=== PATIENT | male | born 1955 | race Caucasian/White ===

== ENCOUNTER 2018-12-16 11:07 | Inpatient (IN) | payer OTHER ==
[~2018-12-16] VITALS: Ht 177.8 cm; Wt 75.6 kg
[~2018-12-16 11:07] MED LIST: Aspirin EC81 MG PO; B-COMPLEX PLUS1 EACH PO; CHOL10002 PO; GLIP10ER PO; IBUP600 PO; METF500C PO; Norco 5-325 Ta1 EACH PO; Zestril30 MG PO
[2018-12-16 11:41] LABS: BASOPHILS ABSOLUTE AUTO 0.06 K/mm3 (0.00-0.23); BASOPHILS PERCENT AUTO 1 % (0-2); EOSINOPHILS ABSOLUTE AUTO 0.06 K/mm3 (0.00-0.68); EOSINOPHILS PERCENT AUTO 1 % (0-6); Hematocrit 41.9 % (37.0-53.0); Hemoglobin 13.4 g/dL (13.5-17.5); IMMATURE GRAN ABSOLUTE AUTO 0.05 K/mm3 (0.00-0.10); IMMATURE GRAN PERCENT AUTO 1 % (0-1); LYMPHOCYTES ABSOLUTE AUTO 1.57 K/mm3 (0.84-5.20); LYMPHOCYTES PERCENT AUTO 18 % (21-46); MONOCYTES ABSOLUTE AUTO 0.71 K/mm3 (0.16-1.47); MONOCYTES PERCENT AUTO 8 % (4-13); Mean Corpuscular HGB 30.9 pg (26.0-34.0); Mean Corpuscular Volume 97 fL (80-100); Mean Platelet Volume 11.1 fL (9.1-12.4); NEUTROPHILS ABSOLUTE AUTO 6.15 K/mm3 (1.96-9.15); NEUTROPHILS PERCENT AUTO 71 % (41-73); Platelet Count 247 K/mm3 (150-400); Red Blood Cell Count 4.33 M/mm3 (4.30-5.90)
[2018-12-16] MEDS ORDERED: METO50ER PO (12:03)
[2018-12-16 12:07] LABS: Alanine Aminotransfer (ALT/SGP 31 U/L (12-78); Albumin, Blood 3.8 g/dL (3.4-5.0); Albumin/Globulin Ratio 1.1 (0.8-1.8); Alk Phos 128 U/L (50-136); Anion Gap 6 mmol/L (6-16); Aspartate Aminotrans (AST/SGOT 14 U/L (12-37); Bilirubin, Total 0.3 mg/dL (0.1-1.0); Blood Urea Nitrogen 35 mg/dL (8-24); Bun/Creatinine Ratio 26.3 (12.0-20.0); CO2, Blood 28 mmol/L (21-32); Calcium, Blood 9.5 mg/dL (8.5-10.1); Chloride, Blood 101 mmol/L (98-108); Creatinine, Blood 1.33 mg/dL (0.60-1.20); Globulin, Blood 3.6 g/dL (2.2-4.0); Glomerular Filtration Rate 57 (60-); Glucose, Blood 338 mg/dL (70-99); Potassium, Blood 4.1 mmol/L (3.5-5.5); Sodium, Blood 135 mmol/L (136-145); Total Protein, Blood 7.4 g/dL (6.4-8.2)
[2018-12-16 12:12] LABS: Troponin I <0.015 ng/mL (0.000-0.040)
[2018-12-16 12:19] LABS: Source, Urine Clean Catch
[2018-12-16 12:30] LABS: Bilirubin, Urine Neg (Neg); Blood, Urine Neg (Neg); Glucose Qualitative, Urine 4+ (Neg); Ketones, Urine Neg (Neg); Leukocyte Esterase, Urine Neg (Neg); Nitrite, Urine Neg (Neg); Protein, Urine 3+ (Neg); Specific Gravity, Urine 1.005 (1.003-1.022); Urobilinogen, Urine NORM (Normal)
[2018-12-16 12:46] LABS: Appearance, Urine Clear (Clear); Color, Urine Yellow (P-Yellow)
[2018-12-16 12:55] LABS: U Amphetamine Screen Not Detected; U Barbituate Screen Not Detected; U Benzodiazapine Screen Not Detected; U Buprenorphine Screen Not Detected; U Cannabinoids Screen DETECTED; U Cocaine Screen Not Detected; U Methadone Screen Not Detected; U Methamphetamine Screen Not Detected; U Opiates Screen Not Detected; U Oxycodone Screen Not Detected; U Phencyclidine Screen Not Detected; U Propoxyphene Screen Not Detected
[2018-12-16 12:58] LABS: Bacteria Not Seen /hpf; Red Blood Cells, Urine Not Seen /hpf (0-2); Squamous Epithelial Cells Few /hpf (Few); White Blood Cells, Urine Not Seen /hpf (0-5)
[2018-12-16] MEDS ORDERED: CHLO25B PO (13:55)
[2018-12-16] MEDS ORDERED: Fish Oil 10001000 MG PO (14:11)
[2018-12-16] MEDS ORDERED: VITAMIN E PO (14:11)
[2018-12-16 17:33] LABS: CHOL/HDL RATIO 5.4; Cholesterol 279 mg/dL (50-200); HDL Cholesterol 52 mg/dL (>39); LDL/HDL RATIO 3.5; Low Density Lipoprotein Chol 180 mg/dL (0-110); Triglycerides 233 mg/dL (30-160); Very Low Density Lipoprot Chol 46 mg/dL (6-32)
--- NOTE | 2018-12-16 19:17 | NUR ---
SHIFT SUMMARY PT ADMITTED FOR CVA. 63 YR OLD MALE. FULL CODE. LEFT SIDED DEFICITS MAY BE FROM PREVIOUS STROKE. PT SLURRING HIS WORDS THIS MORNING. CT SCAN SHOWED NOTHING REMARKABLE. MRI TO BE PERFORMED TOMORROW. HE IS ON TELEMETRY. ROOM AIR. A&O X4. ADA DIET. HX HTN, DM2, 11 YR OLD CVA. SCD'S FOR DVT PREVENTION. PT IS INDEPENDENT AND CONTINENT. NO KNOWN ALLERGIES.
--- NOTE | 2018-12-17 03:17 | NUR ---
SHIFT SUMMARY PT ADMITTED FOR OBSERVATION FOR POSSIBLE CVA. FULL CODE. ADA DIET WITH CBG AT AC AND HS. NEURO CHECKS Q 4 HRS. 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 PT TO HAVE MR AND ECHO COMPLETED TODAY. LOVENOX. INDEPENDENT IN ROOM. NO EVIDENCE OF ACUTE CVA ON CT SCAN. L SIDED WEAKNESS. 18 G IV TO R AC. TAKES MEDICATIONS WHOLE. INSULIN WAS HELD THIS NIGHT DUE TO A CBG OF 151 ON HIGH SS AND TO ADMINISTER AT 150 AND PT DOES NOT TAKE INSULIN AT BASELINE. THE PT PRESENTED TO TO [facility] WITH C/O SLURRED SPEECH, SOME DISORIENTATION, AND SLOWER RESPONSES THEN USUAL PER REPORT FROM PTS . THE PT HAS A HX OF CVA FROM ABOUT 11-12 YEARS AGO WITH SUBSEQUENT L SIDED WEAKNESS. THE PT REPORTED DIFFICULTY SWALLOWING OVER THE 3-4 DAYS AND HAD STARTED COUGHING AFTER A SIP OF WATER PER REPORT. NO SWALLOWING DIFFICULTIES NOTED NO FAR THIS SHIFT. THE PT REPORTED TO THIS NURSE THAT THE DIFFICULTY SWALLING IS TYPICALLY SECONDARY TO CONSUMING SOMETHING DRY SUCH CRACKERS. THE PTS TOXICOLOGY SCREEN WAS POSITIVE FOR MARIJUANA, WHICH COULD BE CONTRIBUTING TO THE PTS SIGHNS AND SYMPTOMS PER REPORT. THE PTS CALL THIS NIGHT TO STATED THAT IF HER HAS ANY CHANGE IN CONDITION THAT SHE WOULD LIKE A PHONE CALL RIGHT AWAY, HER NUMBER IS ON THE BOARD IN THE PTS ROOM. THE PT DID NOT APPEAR TO SHOW ANY CHANGES SO FAR THIS SHIFT, THIS NURSE DID NOTICE A SMALL AMOUNT OF WORD FINDING DIFFICULTY AND SLURRED SPEECH X1 DURING CARE. THE PT HAS APPEARED TO SLEEP COMFORTABLY MOST OF THE NIGHT WITH NO APPARENT SIGNS OF ACUTE DISTRESS. ABLE TO MAKE NEEDS KNOWN AND CALL LIGHT IN REACH.
[2018-12-17 05:52] LABS: Anion Gap 7 mmol/L (6-16); Blood Urea Nitrogen 30 mg/dL (8-24); Bun/Creatinine Ratio 24.6 (12.0-20.0); CO2, Blood 26 mmol/L (21-32); Chloride, Blood 104 mmol/L (98-108); Creatinine, Blood 1.22 mg/dL (0.60-1.20); Glomerular Filtration Rate >60 (60-); Glucose, Blood 180 mg/dL (70-99); Potassium, Blood 3.9 mmol/L (3.5-5.5); Sodium, Blood 137 mmol/L (136-145)
--- NOTE | 2018-12-17 11:06 | NUR ---
Echocardiogram completed.
--- NOTE | 2018-12-17 18:29 | NUR ---
SHIFT SUMMARY 63 YR OLD MALE ADMITTED FOR CVA. FULL CODE. HAD MRI TODAY. ACHS - MED SS. SOFT BITE SIZE DIET, SCDS FOR DVT PREVENTION, DYSPHAGIA PRECAUTIONS - NO STRAWS. PT ON TELE. A&O X4, INDEPENDENT IN ROOM, CONTINENT. HX: CVA 12 YRS AGO (LFT SIDED DEFICITS), HTN, DM 2, PT ALSO ON LOVENOX FOR DVT PREVENTION. NEURO CHECKS Q 4 HRS.
--- NOTE | 2018-12-18 03:43 | NUR ---
SHIFT SUMMARY NO APPARENT ACUTE CHANGES SO FAR THIS SHIFT FROM PREVIOUS SHIFT. PT HAS APPEARED TO SLEEP COMFORTABLY THROUGHOUT THE NIGHT. ABLE TO MAKE NEEDS KNOWN AND CALL LIGHT IN REACH.
[2018-12-18] MEDS ORDERED: ATOR40TA PO (12:17)
[2018-12-18] MEDS ORDERED: CLOP75 PO (12:17)
[2018-12-18] MEDS ORDERED: Natural Vita400 UNIT PO (12:17)
[2018-12-18] MEDS ORDERED: INSULANPEN SC (12:18)
[2018-12-18] MEDS ORDERED: MELATONIN5 M1 PO (12:19)
--- NOTE | 2018-12-18 14:13 | NUR ---
DISCHARGED TO HOME WITH HIS AT 1345. ST, OT, AND FIRE SAFETY DIRECTOR HAVE ALL INSTRUCTED HIM/THEM TODAY. I HAVE DONE SOME INSTRUCTION ON INSULIN PEN INJECTION AND KEEPING A RECORD OF ALL HIS CBG RESULTS (ATLEAST TWICE A DAY). HE KNOWS TO TAKE THE RECORD INTO HIS PCP. HE HAS RX'S FOR A GLUCOMETER AND SUPPLIES, AND FOR OUTPT ST AND OT. RX'S ARE AT [facility] IN [place].
== END 2018-12-18 13:46 | disposition home or self-care (01) | DRG 65 ==
LOC: ER 11:07 → MEDS 11:08 → ENPENDDIS 12-18 10:19 → MEDS 12-18 13:46
PROVIDERS: Emergency Medicine; ADMIT Family Medicine
DX: I63.9 Cerebral infarction, unspecified (principal); E87.1 Hypo-osmolality and hyponatremia; I69.354 Hemiplegia and hemiparesis following cerebral infarction affecting left non-dominant side; I16.1 Hypertensive emergency; N17.9 Acute kidney failure, unspecified; R47.81 Slurred speech; E11.65 Type 2 diabetes mellitus with hyperglycemia; E78.5 Hyperlipidemia, unspecified; I12.9 Hypertensive chronic kidney disease with stage 1 through stage 4 chronic kidney disease, or unspecified chronic kidney disease; E11.22 Type 2 diabetes mellitus with diabetic chronic kidney disease; N18.3 Chronic kidney disease, stage 3 (moderate); R13.10 Dysphagia, unspecified; Z87.891 Personal history of nicotine dependence
CPT/HCPCS: 36415; 70496; 70551; 80048; 80053; 80061; 81001; 82947; 83036; 84484; 85025; 92526; 92610; 93005; 93010; 93306; 93880; 96372; 97162; 97165; 97530; 97535; 99285-25; G0378; J1650; J1815; Q9967

== ENCOUNTER 2018-12-18 15:39 | Emergency (ER) | payer OTHER ==
[~2018-12-18] VITALS: Ht 177.8 cm; Wt 79.4 kg
[~2018-12-18 15:39] MED LIST changes: +ATOR40TA PO; +CHLO25B PO; +CLOP75 PO; +Fish Oil 10001000 MG PO; +INSULANPEN SC; +MELATONIN5 M1 PO; +METO50ER PO; +Natural Vita400 UNIT PO; +VITAMIN E PO
[2018-12-18 16:20] LABS: BASOPHILS ABSOLUTE AUTO 0.05 K/mm3 (0.00-0.23); BASOPHILS PERCENT AUTO 1 % (0-2); EOSINOPHILS ABSOLUTE AUTO 0.09 K/mm3 (0.00-0.68); EOSINOPHILS PERCENT AUTO 1 % (0-6); Hematocrit 40.5 % (37.0-53.0); Hemoglobin 13.4 g/dL (13.5-17.5); IMMATURE GRAN ABSOLUTE AUTO 0.05 K/mm3 (0.00-0.10); IMMATURE GRAN PERCENT AUTO 1 % (0-1); LYMPHOCYTES ABSOLUTE AUTO 2.68 K/mm3 (0.84-5.20); LYMPHOCYTES PERCENT AUTO 26 % (21-46); MONOCYTES ABSOLUTE AUTO 1.07 K/mm3 (0.16-1.47); MONOCYTES PERCENT AUTO 10 % (4-13); Mean Corpuscular HGB 29.5 pg (26.0-34.0); Mean Corpuscular HGB Conc 33.1 g/dL (31.5-36.5); NEUTROPHILS ABSOLUTE AUTO 6.36 K/mm3 (1.96-9.15); NEUTROPHILS PERCENT AUTO 62 % (41-73); Platelet Count 370 K/mm3 (150-400); RDW Coefficient Variation 13.9 % (11.7-14.2); RDW Standard Deviation 45.6 fL (35.1-46.3); Red Blood Cell Count 4.55 M/mm3 (4.30-5.90)
[2018-12-18 16:23] LABS: Mean Corpuscular Volume 89 fL (80-100)
[2018-12-18 16:30] LABS: Albumin, Blood 3.6 g/dL (3.4-5.0); Bilirubin, Total 0.3 mg/dL (0.1-1.0); Bun/Creatinine Ratio 20.8 (12.0-20.0); Calcium, Blood 9.6 mg/dL (8.5-10.1); Creatinine, Blood 1.68 mg/dL (0.60-1.20); Globulin, Blood 3.7 g/dL (2.2-4.0); Potassium, Blood 3.8 mmol/L (3.5-5.5); Total Protein, Blood 7.3 g/dL (6.4-8.2)
== END 2018-12-18 17:49 | disposition home or self-care (01) ==
LOC: ER 15:39
PROVIDERS: Emergency Medicine
DX: R55 Syncope and collapse (principal); N17.9 Acute kidney failure, unspecified; N28.9 Disorder of kidney and ureter, unspecified; Z79.899 Other long term (current) drug therapy; Z79.82 Long term (current) use of aspirin; Z79.4 Long term (current) use of insulin; I10 Essential (primary) hypertension; E11.9 Type 2 diabetes mellitus without complications
CPT/HCPCS: 80053; 85025; 93005; 93010; 99284-25

== ENCOUNTER → 2019-03-31 | Outpatient (CLI) | payer OTHER ==
[2019-03-31 15:32] LABS: Creatinine, Urine Random 51.9 mg/dL (27.00-270.00); Protein, Urine Random 106.5 mg/dL (0.0-11.9)
== END | disposition home or self-care (01) ==
LOC: LAB 14:41 → LAB SHORT 14:41
PROVIDERS: Internal Medicine
DX: N18.2 Chronic kidney disease, stage 2 (mild) (principal)
CPT/HCPCS: 82570; 84156

== ENCOUNTER 2025-08-05 15:30 | Emergency (ER) | payer OTHER ==
[~2025-08-05] VITALS: Ht 177.8 cm; Wt 77.1 kg
[~2025-08-05 15:30] MED LIST changes: +BASAGLAR K100 UNIT/1 SC; +CARV6.25 PO; -CHOL10002 PO; +FISH OIL 1,2001 EAC7 PO; -Fish Oil 10001000 MG PO; -INSULANPEN SC; -Natural Vita400 UNIT PO; +VITAMIN D325 MC3 PO; +VITAMIN E400 UNI1 PO; +ZESTRIL40 M1 PO; -Zestril30 MG PO
[2025-08-05 15:48] VITALS: BP 131/72
[2025-08-05 16:28] LABS: BASOPHILS ABSOLUTE AUTO 0.06 K/mm3 (0.00-0.23); BASOPHILS PERCENT AUTO 1 % (0-2); EOSINOPHILS ABSOLUTE AUTO 0.13 K/mm3 (0.00-0.68); EOSINOPHILS PERCENT AUTO 1 % (0-6); Hematocrit 32.3 % (37.0-53.0); Hemoglobin 11.1 g/dL (13.5-17.5); IMMATURE GRAN ABSOLUTE AUTO 0.07 K/mm3 (0.00-0.10); IMMATURE GRAN PERCENT AUTO 1 % (0-1); LYMPHOCYTES ABSOLUTE AUTO 1.67 K/mm3 (0.84-5.20); LYMPHOCYTES PERCENT AUTO 15 % (21-46); MONOCYTES ABSOLUTE AUTO 1.05 K/mm3 (0.16-1.47); MONOCYTES PERCENT AUTO 9 % (4-13); Mean Corpuscular HGB Conc 34.4 g/dL (31.5-36.5); Mean Corpuscular Volume 89 fL (80-100); NEUTROPHILS ABSOLUTE AUTO 8.45 K/mm3 (1.96-9.15); NEUTROPHILS PERCENT AUTO 74 % (41-73); NRBC ABSOLUTE 0.00 K/mm3 (0.00-0.02); NRBC Auto 0.0 /100 WBC (0.0-0.2); Platelet Count 393 K/mm3 (150-400); RDW Coefficient Variation 13.5 % (11.7-14.2); RDW Standard Deviation 44.6 fL (35.1-46.3)
[2025-08-05 16:49] LABS: Alanine Aminotransfer (ALT/SGP 33.0 U/L (12-78); Albumin, Blood 3.8 g/dL (3.4-5.0); Albumin/Globulin Ratio 1.0 (0.8-1.8); Anion Gap 12.0 mmol/L (3-11); Aspartate Aminotrans (AST/SGOT 15.0 U/L (12-37); Bilirubin, Total 0.4 mg/dL (0.1-1.0); Blood Urea Nitrogen 49.0 mg/dL (8-24); CO2, Blood 23.0 mmol/L (21-32); Calcium, Blood 9.5 mg/dL (8.5-10.1); Chloride, Blood 102.0 mmol/L (98-108); Creatinine, Blood 1.94 mg/dL (0.60-1.20); Globulin, Blood 3.7 g/dL (2.2-4.0); Glucose, Blood 299.0 mg/dL (70-99); Potassium, Blood 4.4 mmol/L (3.5-5.5); Sodium, Blood 133.0 mmol/L (136-145); Total Protein, Blood 7.5 g/dL (6.4-8.2)
[2025-08-05] MEDS ORDERED: NS 1,000 ML IV SCH (17:45)
== END 2025-08-05 19:12 | disposition home or self-care (01) ==
LOC: ER 15:30
PROVIDERS: Emergency Medicine
DX: R55 Syncope and collapse (principal); I10 Essential (primary) hypertension; E11.9 Type 2 diabetes mellitus without complications; Z79.4 Long term (current) use of insulin; Z79.84 Long term (current) use of oral hypoglycemic drugs; Z79.82 Long term (current) use of aspirin; Z79.899 Other long term (current) drug therapy; Z87.891 Personal history of nicotine dependence
CPT/HCPCS: 73502; 80053; 84484; 85025; 93005; 93010; 99285-25; J7030